=== PATIENT | male | born 1980 ===

== ENCOUNTER 2021-07-21 13:53 | Emergency (ER) | payer SELFPAY ==
[2021-07-21 14:11] VITALS: BP 125/86
== END 2021-07-22 02:15 | disposition left against medical advice (07) ==
LOC: ED 13:53
DX: S61.219A Laceration without foreign body of unspecified finger without damage to nail, initial encounter (principal); Z53.21 Procedure and treatment not carried out due to patient leaving prior to being seen by health care provider; W45.8XXA Other foreign body or object entering through skin, initial encounter; Y93.89 Activity, other specified; Y92.89 Other specified places as the place of occurrence of the external cause; Y99.8 Other external cause status